=== PATIENT | male | born 1995 | race Two or more races ===

== ENCOUNTER 2024-11-21 15:00 | Emergency (ER) | payer BC, SELFPAY ==
--- NOTE | ~2024-11-21 | XR_ITS ---
CLINICAL HISTORY: pain 5 view, pelvis and left hip Comparison: None provided Findings: The bones are intact. No significant arthritic change. The soft tissues are unremarkable. IMPRESSION: No acute fracture or dislocation. This document has been electronically signed by: Hyacinth Crawford DO on 11/21/2024 18:28:35
--- NOTE | ~2024-11-21 | XR_ITS ---
CLINICAL HISTORY: pain, trauma, r o pneumothroax vs fx 2 view chest x-ray Comparison: None provided Findings: No acute airspace opacity, pleural effusion or pneumothorax. Heart size is normal. No acute fracture. IMPRESSION: No acute rib fracture is evident. No pneumothorax. This document has been electronically signed by: Hyacinth Crawford DO on 11/21/2024 18:27:12
--- NOTE | ~2024-11-21 | XR_ITS ---
CLINICAL HISTORY: pain 4 view right shoulder Comparison: None provided Findings: No fractures or dislocations. No significant loss of joint space or osteophytes. No erosions. No radiopaque foreign body. IMPRESSION: No acute fracture or dislocation. This document has been electronically signed by: Hyacinth Crawford DO on 11/21/2024 18:26:21
[2024-11-21 15:28] VITALS: BP 115/40; BP 151/95; PULSE 50; PULSE 91; RESP 16; TEMP 36.6; O2SAT 97; O2SAT 99; BMI 41.6
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
[2024-11-21 16:16] VITALS: BP 118/70; PULSE 86; RESP 16; TEMP 36.9; O2SAT 96
--- OUTSIDE RECORDS SUMMARY | 2024-11-21 18:26 | XMS_ITS | Clinical Summary ---
Author Organization [facility] Address [address] [place] [address] Care Team Providers Care In Flight Refueling Manager Name Role Phone Darlin, Tylor SERVICE DESK ANALYST Primary Care Provider [phone] Source Comments PLEASE NOTE, if this patient is a minor, it may be UNLAWFUL to discuss sensitive information that is contained in these records (such as FAMILY PLANNING, MENTAL HEALTH or SUBSTANCE ABUSE) with the minor patient's parent or other person without the patient's specific authorization.[facility] Allergies No known active allergies Medications azelastine (ASTELIN) 137 mcg (0.1 %) nasal sprayIndications :Allergic rhinitis due to pollen, unspecified seasonality,[employer] luis nasal congestion Place 1 [place] into the nostril(s) 2 (two) times daily 30 mL 5 4 Active emtricitabine-te nofovir, TDF, (TRUVADA) 200-300 mg per tablet Take 1 Tablet by mouth once daily 90 Tablet 1 4 Active lidocaine (LIDODERM) 5 % patchIndications :Chronic left-sided low back pain, unspecified whether sciatica present Place 1 Patch onto the skin once daily (every 24 hours) Apply 1 patch to the affected area for a maximum of 12 hours, followed by removal for 12 hours. 30 Patch 2 5 Active meloxicam (MOBIC) 15 mg tabletIndication s:Chronic left-sided low back pain, unspecified whether sciatica present Take 1 Tablet by mouth once daily 90 Tablet 5 Active methocarbamoL (ROBAXIN) 750 mg tabletIndication s:Chronic left-sided low back pain, unspecified whether sciatica present Take 1 Tablet by mouth 3 (three) times daily 30 Tablet 5 Active Active Problems Problem Noted Date Diagnosed Date Need for vaccination 09/11/2024 Deviated nasal septum 01/05/2024 Overview (01/05/2024): [facility] December 2023 Immune to hepatitis B 08/26/2023 Class 1 obesity due to exces s calories without serious comorbidity with body mass index (BMI) of 32.0 to 32.9 in adult 08/25/2023 MARIZOL (obstructive sleep apnea) 08/25/2023 Overview (12/27/2023): Nov 2023; Did test on [place] and had MARIZOL, has not done test in [place]; Does NOT have CPAP Allergic rhinitis due to pollen 08/25/2023 Encounters Date Type Department Care Team Description 09/11/2024 3:40 PM EDT Office Visit [address] [phone] Simeon Martinez from Last 3 Months Immunizations Immunization Administration Dates Next Due COVID-19,SARS-COV-2 VACCINE, UNSPECIFIED ([place] Admin) 05/28/2022,01/02/2021,10/15/2020 HEP A-HEP B (T[place]) 09/29/2023 HEP B, PED/ADOL ([id number]-UNPY/RECOMBIVAX-PEDS) 05/05/2023 Hep A, adult 12/27/2023 IPV (IPOL) 09/11/2024,08/10/2024 Influenza (FLUBLOK),recombinant,injectable,preservati ve Free 12/27/2023 MMR (MMR II/Priorix) 08/25/2023,05/05/2023 Moderna COVID-19 (Spikevax), Mrna, Lnp-s, Pf, 50 Mcg/0.5 Ml, 12yr+ 08/25/2023 TDAP 08/25/2023,05/05/2023 Varicella (Varivax), Live Vaccine 12/27/2023, Family History Medical History Relation Name Comments No Known Problems Brother Depression Father Hypertension Father Gallbladder Disease Mother No Known Problems Sister Relation Name Status Comments Brother Alive Father Alive Mother Alive Sister Alive Social History Tobacco Use Types Packs/Day Years Used Date Smoking Tobacco: Never Passive Smoke Exposure: Never Smokeless Tobacco: Never Tobacco Cessation:Counseling Given: Not Answered Alcohol Use Standard Drinks/Week Comments Never 0 (1 standard drink = 0.6 oz pur e alcohol) Social Connections Answer Date Recorded Connectedness 0 11/15/2023 Financial Resource Strain Answer Date R ecorded Financial Resource Strain 0 2023 Stress Answer Date Recorded Stress 0 08/06/2023 Physical Activity Answer Date Recorded Physical Activity 0 08/06/2023 Food Insecurity Answer Date Recorded Food 0 11/25/2023 Transportation Needs Answer Date Record ed Transportation 0 08/06/2023 Housing Stability Answer Date Recorded Housing 0 08/06/2023 Safety and Environment Answer Date Eloy rded Safety 0 08/06/2023 Utilities Answer Date Recorded Utilities 0 08/06/2023 Employment Answer Date Recorded Stress 0 11/15/2023 Sex and Gender Information Value Date Recorded Sex Assigned at Male 08/25/2023 10:23 AM PDT Legal Sex Male 5:40 AM PDT Gender Identity Male 08/25/2023 10:23 AM PDT Sexual Orientation Jeff 08/25/2023 10 :29 AM PDT Occupation Industry Job Start Date Job End Date works in [employer] Not on file Not on file Not on file Last Filed Vital Signs Vital Sign Reading Time Taken Comments Blood Pressure 118/74 08/04/2024 3:39 PM EDT Pulse 71 08/04/2024 3:39 PM EDT Temperature 36.8 C (98.2 F) 08/04/2024 3:39 PM EDT Respiratory Rate 16 08/04/2024 3:39 PM EDT Oxygen Saturation 95% 12/27/2023 10:27 AM EDT Inhaled Oxygen Concentration - - Weight 112 kg (247 lb) 08/04/2024 3:39 PM EDT Height 180.3 cm (5' 11 ) 08/04/2024 3:39 PM EDT Body Mass Index 34.45 08/04/2024 3:39 PM EDT Plan of Treatment Upcoming Encounters Date Type Department Care Team (Late st Contact Info) Description 12/26/2024 1:00 PM EDT Office Visit [facility] [address] [place] [address] Michael Saeed FNP [address] [place] [address] Health Maintenance Due Date Last Done Comments Dental Perio Charting 1996 Imm-HPV (1 - 3-dose SCDM series) 2023 Imm-Hepatitis A (3 of 3 - He p A Twinrix risk 3-dose series) 05/26/2024 12/27/2023, 09/29/2023 Syphilis Screening 08/24/2024 08/25/2023 [id number] ( - season) 2024 08/25/2023, 05/28/2022, 01/02/2021, Additional history exists Imm-Influenza (#1) 2024 12/27/2023 Dental BW 12/21/2024 12/20/2023 Dental Examination 12/21/2024 12/20/2023 Dental Prophy 12/21/2024 12/20/2023 Annual Wellness (Adult): Indicated (All Coverage) 12/26/2024 12/27/2023 HIV Screening 12/26/2024 12/27/2023, 08/25/2023 Anxiety Screening 08/04/2025 08/04/2024 Hypertension Screening (#1) 08/04/2025 Tobacco Screening 08/04/2025 08/04/2024 Lipid Screening 12/26/2026 12/27/2023 Dental FMX/Pano 12/21/2028 12/20/2023 Imm-DTaP/Tdap/Td (3 - Td or Tdap) 08/24/2033 024, 05/05/2023 Hepatitis B Screening Completed 08/25/2023, 024 Hepatitis C Screening Completed 08/25/2023 Imm-Hepatitis B Discontinued 09/29/2023, 05/05/2023 Alcohol and Drug Screen Completed 08/04/2024, 12/26 Depression Annual Screen Completed 08/04/2024 Procedures Procedure Name Priority Date/Time Associated Diagnosis Comments HEALTH HISTORY SCANNED DOCUMENT 08/25/2024 3:00 AM EDT HIV 1/2 AG & AB W/RFLX (4TH GEN) Routine 12/27/2023 11:42 AM EDT Examination, medical, general LIPID PANEL Routine 12/27/2023 11:42 AM EDT Examination, medical, general INTRAORAL - COMP SERIES OF RADIOGRAPHIC IMAGES Routine 12/20/2023 9:00 AM EDT Encounter for dental examination PROPHYLAXIS - ADULT Routine 12/20/2023 9 :00 AM EDT Encounter for dental examination COMP ORAL EVALUATION - NEW/ESTABLISHED PATIENT Routine 12/20/2023 9:00 AM EDT Encounter for dental examination RPR (DIAGNOSIS) WITH REFLEX TO TITER AND CONFIRMATORY TESTING Routine 08/25/2023 2:42 PM EDT Refugee health examination HEPATITIS B SURFACE AG, EIA WITH REFLEX CONFIRM Routine 08/25/2023 2:42 PM EDT Refugee health examination HEPATITIS C AB W/RFLX HCV RNA, QT, RT PCR Routine 08/25/2023 2:42 PM EDT Refugee health examination from Last 3 Months or Most Recently Relevant to Health Maintenance Results * HEALTH HISTORY SCANNED DOCUMENT (08/25/2024 3:00 AM EDT) 08/25/2024 3:00 AM EDT Andres Healy MD SCAN OTHER ORDERS Final Resu lt * HIV 1/2 AG & AB W/RFLX (4TH GEN) (12/27/2023 11:42 AM EDT) Pathologist [facility] HIV AG/AB, 4TH GEN NON-REAC TIVE NON-REAC TIVE [facility] Comment: HIV-1 antigen and HIV-1/HIV-2 antibodies were not detected. There is no laboratory evidence of HIV infection. PLEASE NOTE: This information has been disclosed to you from records whose confidentiality may be protected by state law. If your state requires such protection, then the state law prohibits you from making any further disclosure of the information without the specific written consent of the person to whom it pertains, or as otherwise permitted by law. A general authorization for the release of medical or other information is NOT sufficient for this purpose. For additional information please refer to http://education.Playtika/faq/VIZ371 (This link is being provided for informational/ educational purposes only.) The performance of this assay has not been clinically validated in patients less than 2 years old. Blood Blood / Unknown 12/27/2023 1 1:42 AM EDT 12/27/2023 11:43 AM EDT Narrative [email or web address] - 12/28/2023 6:12 AM EDT FASTING:YES Michael PARSONP LAB - BLOOD DRAW Final Re sult [facility] [address] [address], [place] [employer] [address] [address] * LIPID PANEL (12/27/2023 11:42 AM EDT) [facility] Signature CHOLESTEROL, TOTAL 141 <200 mg/dL [place] [facility] [facility] HDL CHOLESTEROL 40 > OR = 40 mg/dL [facility] TRIGLYCERIDES 67 <150 mg/dL [facility] LDL-CHOLESTEROL 86 99 mg/dL (calc) [facility] Comment: Reference range: <100 Desirable range <100 mg/dL for primary prevention; <70 mg/dL for patients with CHD or diabetic patients with > or = 2 CHD risk factors. LDL-C is now calculated using the Juaquin-Ratna calculation, which is a validated novel method providing better accuracy than the Friedewald equation in the estimation of LDL-C. Juaquin JAUREGUI et al. TRISTAN. 2013;310(19): 1814-7874 (http://education.ProZyme/faq/OPB205) CHOL/HDLC RATIO 3.5 <5.0 (calc) [facility] NON-HDL CHOLESTEROL 101 <130 mg/dL (calc) [facility] Comment: For patients with diabetes plus 1 major ASCVD risk factor, treating to a non-HDL-C goal of <100 mg/dL (LDL-C of <70 mg/dL) is considered a therapeutic option. Blood Blood / Unknown 12/27/2023 1 1:42 AM EDT 12/27/2023 11:43 AM EDT Narrative [email or web address] - 12/28/2023 6:12 AM EDT FASTING:YES Michael Saeed [facility] - BLOOD DRAW Final Re sult Performing Organization Address [facility] de Phone Number [email or web address] [address] [address], [facility] [address] [address] * RPR (DIAGNOSIS) WITH REFLEX TO TITER AND CONFIRMATORY TESTING (08/25/2023 2:42 PM EDT) RPR (DX) W/REFL TITER AND CONFIRMATORY TESTING NON-REACT SISI NON-REACT [facility] Comment: No laboratory evidence of syphilis. If recent exposure is suspected, submit a new sample in 2-4 weeks. Serum Blood / Unknown 08/25/2023 2 :42 PM EDT 08/25/2023 2:43 PM EDT [facility] - 08/30/2023 8:37 PM EDT SPECIMEN COLLECTED AT PROVIDER OFFICE. Ailyn Hoffman [facility] - BLOOD DRAW Edited R esult - Final Performing Organization Address [facility] Co de Phone Number [email or web address] [address] [address], [employer] [address] [address] * HEP C AB W/RLFX HCV RNA (for all adults >/= 18 yrs, all women, and all unaccompanied minors) (08/25/2023 2:42 PM EDT) HEPATITIS C ANTIBODY NON-REACT SISI NON-REACT SISI [facility] Comment: HCV antibody was non-reactive. There is no laboratory evidence of HCV infection. In most cases, no further action is required. However, if recent HCV exposure is suspected, a test for HCV RNA (test code 24664) is suggested. For additional information please refer to http://education.Playtika/faq/WHB78l9 (This link is being provided for informational/ educational purposes only.) Blood Blood / Unknown 08/25/2023 2 :42 PM EDT 08/25/2023 2:43 PM EDT Narrative [facility] - 08/30/2023 8:37 PM EDT SPECIMEN COLLECTED AT PROVIDER OFFICE. Ailyn Lunsfordinda SERVICE DESK ANALYST LAB - BLOOD DRAW Edited R [employer] Performing Organization Address [facility] Co de Phone Number [facility] [address] [address], [facility] [address] [address] * HEPATITIS B SURFACE AG, EIA WITH REFLEX CONFIRM (08/25/2023 2:42 PM EDT) HEPATITIS B SURFACE ANTIGEN NON-REACT SISI NON-REACT SISI [facility] COMMENT [facility] Blood Blood / Unknown 08/25/2023 2 :42 PM EDT 08/25/2023 2:43 PM EDT Narrative [facility] - 08/30/2023 8:37 PM EDT SPECIMEN COLLECTED AT PROVIDER OFFICE. For additional information, please refer to http://education.Playtika/faq/HUO467 (This link is being provided for informational/ educational purposes only.) Re Belinda [facility] - BLOOD DRAW Edited [employer] Performing Organization Address [facility] Co de Phone Number [facility] [address] [address], [facility] [address] [address] from Last 3 Months or Most Recently Relevant to Health Maintenance Insurance [place] [employer] Member Subscriber Plan / Payer (Ef fective 2024-Present) Name:Alexander Membrenoor Relation to Subscriber:Self Name:Horowitz Alexander Schwartz Payer ID:[id number] Type:Indemnity Address: [address] [address] [place] [address] Care Teams In Flight Refueling Manager Relationship Specialty Start Date End Date Michael Saeed FNP [address] [place] [address] PCP - General Family Medicine, DATA COLLECTION ASSOCIATE 09/29/23
[2024-11-21 18:41] VITALS: BP 115/73; PULSE 81; RESP 18; TEMP 36.5; O2SAT 96
[2024-11-21 19:21] VITALS: BP 105/66; PULSE 79; RESP 15; TEMP 36.5; O2SAT 96
[2024-11-21 19:30] VITALS: BP 105/66; PULSE 79; RESP 15; TEMP 36.5; O2SAT 96
== END 2024-11-21 19:39 | disposition home or self-care (01) ==
PROVIDERS: Emergency Provider Emergency Medicine
DX: M25.511 Pain in right shoulder (principal); M25.552 Pain in left hip; R07.89 Other chest pain
CPT/HCPCS: 71046; 73030; 73502; 99283; 99284

== ENCOUNTER → 2024-11-21 17:00 | Outpatient (BNV) | payer BC, SELFPAY | PROVIDERS: Emergency Provider Emergency Medicine; Visit Provider Radiology Diagnostic Radiology | DX: M25.552 Pain in left hip (principal); R07.9 Chest pain, unspecified; M25.511 Pain in right shoulder | CPT/HCPCS: 71046; 73030; 73502 ==